=== PATIENT | male | born 1955 | race Caucasian/White ===

== ENCOUNTER 2024-08-24 22:21 | Emergency (ER) | payer OTHER ==
[~2024-08-24] VITALS: Ht 185.4 cm; Wt 83.9 kg
[2024-08-24] MEDS ORDERED: PROPARACAINE 0.5% OPHT DROP 15 ML BOTTLE OP ONE (23:15)
[2024-08-24] MEDS ORDERED: FLUORESCEIN SODIUM 1 MG STRIP ONE (23:16)
[2024-08-24] MEDS ORDERED: TETRACAINE HCL 0.5% OPHT DROP 2 ML BOTTLE ONE (23:18)
[2024-08-24] MEDS: TETRACAINE HCL 0.5% OPHT DROP 2 ML BOTTLE OP ONE (23:26)
[2024-08-24] MEDS: FLUORESCEIN SODIUM 1 MG STRIP OP ONE (23:26)
[2024-08-24] MEDS ORDERED: DICL2.5D LEFTEYE (23:44)
[2024-08-24] MEDS ORDERED: POLY10DR6 EACHEYE (23:44)
[2024-08-24 23:53] VITALS: BP 140/74; TEMP 98.4
== END 2024-08-24 23:50 | disposition home or self-care (01) ==
LOC: ER 22:21
DX: H10.9 Unspecified conjunctivitis (principal); H57.89 Other specified disorders of eye and adnexa; R03.0 Elevated blood-pressure reading, without diagnosis of hypertension; H53.8 Other visual disturbances; Z88.0 Allergy status to penicillin; Z79.899 Other long term (current) drug therapy
CPT/HCPCS: A4606; A4663